=== PATIENT | female | born 1975 | race Caucasian/White ===

== ENCOUNTER 2020-02-17 11:14 | Emergency (ER) | payer BC ==
[~2020-02-17] VITALS: Ht 170.2 cm; Wt 61.2 kg
[~2020-02-17 11:14] MED LIST: [UNRECOGNIZED DRUG - OTHER]
--- NOTE | 2020-02-17 11:15 | NUR ---
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
--- NOTE | 2020-02-17 11:25 | NUR ---
PT HERE FROM HOME C/O VAGINAL BLEEDING, SHE HAS BEEN WORKED UP FOR A SURGICAL PROCEDURE AND IS AWAITING SURGERY DATE. SHE IS ALERT, CALM, RESP UNLABORED, SKIN WARM AND DRY. COMMUNICATES CLEARLY IN FULL COMPLETE SENTENCES. HERE TODAY DUE TO EPISODE OF LIGHTHEADEDNESS W/BLEEDING. DENIES PAIN
[2020-02-17 11:30] VITALS: BP_SYST 114
[2020-02-17] MEDS ORDERED: MEDR10TA10 PO (11:30)
--- NOTE | 2020-02-17 11:42 | NUR ---
DR VILA IN TO ASSESS
--- NOTE | 2020-02-17 11:48 | NUR ---
BLOOD OBTAINED. PT TOLERATED WELL. CALM, ALERT, RESP UNLABORED
[2020-02-17 12:01] LABS: BASOPHILS % (AUTO) 0.5 % (0.0-2.0); EOSINOPHILS % (AUTO) 0.2 % (0.0-4.0); HEMATOCRIT 37.5 % (36-48); HEMOGLOBIN 12.2 g/dL (12.0-16.0); LYMPHOCYTES # (AUTO) 1.1 K/uL (1.0-5.5); LYMPHOCYTES % (AUTO) 17.1 % (20.5-51.5); MEAN CORPUSCULAR HEMOGLOBIN 28 pg (27-31); MEAN CORPUSCULAR HGB CONC 33 % (32-36); MEAN CORPUSCULAR VOLUME 85 fL (79.0-98.0); MONOCYTES # (AUTO) 0.5 K/uL (0.0-1.0); MONOCYTES % (AUTO) 7.4 % (1.7-9.3); NEUTROPHILS # (AUTO) 4.8 K/uL (1.8-7.7); NEUTROPHILS % (AUTO) 74.8 % (40.0-70.0); PLATELET COUNT (AUTO) 253 K/uL (130-430); RED BLOOD CELL COUNT(AUTO) 4.43 MIL/uL (4.2-6.2); WHITE BLOOD COUNT (AUTO) 6.4 K/uL (4.8-10.8)
--- NOTE | 2020-02-17 12:10 | NUR ---
COMMUNICATED A PREOP WORK UP IN PROGRESS AND AWAITING SURGICAL DATE VAG BLEEDING SINCE SEPTEMBER SHE HAS HAD BLOOD TX IN THE PAST DUE TO VAG BLEEDING AND NEEDS CYST REMOVAL
[2020-02-17 12:13] LABS: CALCIUM 8.1 mg/dL (8.4-11.0); POTASSIUM 4.7 mmol/L (3.5-5.1)
[2020-02-17 12:14] LABS: CREATININE 0.52 mg/dL (0.55-1.30)
[2020-02-17 12:19] LABS: ALBUMIN 3.4 g/dL (3.4-4.8); TOTAL BILIRUBIN 0.3 mg/dL (0.0-1.0)
[2020-02-17 12:42] VITALS: BP_SYST 108
--- NOTE | 2020-02-17 12:57 | NUR ---
Patient given written and verbal discharge instructions and verbalizes understanding. ER MD discussed with patient the results and treatment provided. Patient in stable condition. ID arm band removed. Patient educated on pain management and to follow up with PMD. Pain Scale 0/10 Opportunity for questions provided and answered. Medication side effect fact sheet provided. COMMUNICATED UNDERSTANDING AND WILL FOLLOW UP WITH PMD SCHEDULED
== END 2020-02-17 12:57 | disposition home or self-care (01) ==
LOC: SED 11:14
DX: N84.0 Polyp of corpus uteri (principal)
CPT/HCPCS: 36415; 80053; 85025; 86886; 86900; 86901; 99283